=== PATIENT | male | born 1995 | race Caucasian/White ===

== ENCOUNTER → 2016-12-18 | Outpatient (REF) | LOC: WSOH 09:19 | DX: Z02.1 Encounter for pre-employment examination (principal) ==

== ENCOUNTER → 2016-12-22 | Outpatient (REF) | LOC: WSOH 13:35 → WSPT 15:00 | DX: Z00.00 Encounter for general adult medical examination without abnormal findings (principal) ==

== ENCOUNTER 2017-03-06 14:37 | Outpatient (RCR) | payer OTHER | END 2017-06-04 | LOC: WSOH | DX: S70.01XA Contusion of right hip, initial encounter (principal); S20.211A Contusion of right front wall of thorax, initial encounter; S63.501A Unspecified sprain of right wrist, initial encounter; S60.221A Contusion of right hand, initial encounter; S50.01XA Contusion of right elbow, initial encounter; W17.89XA Other fall from one level to another, initial encounter; Y99.0 Civilian activity done for income or pay ==